=== PATIENT | male | born 1975 | race Two or more races ===

== ENCOUNTER 2023-02-27 18:37 | Emergency (ER) | payer OTHER, SELFPAY ==
[2023-02-27 18:42] VITALS: BP 153/89; PULSE 95; RESP 16; TEMP 36.8; O2SAT 96; BMI 33.5
--- NOTE | 2023-02-27 18:50 | XR_ITS ---
The [address] [address] Patient Name: FABIO CHRISTIANSON MRN: [id number] date: 1975 Sex: M Assigned Patient Location: ER Current Patient Location: ER Accession/Order Number: [id number] Exam Date: 02/27/2023 18:55 Report Date: 02/27/2023 19:36 At the request of: JOBY CARO Procedure: XR lumbar spine 2-3V EXAMINATION: XR lumbar spine 2-3V, [id number] HISTORY: pain COMPARISON: CT abdomen/pelvis 09/25/2022 FINDINGS: There are 6 nonrib-bearing lumbar-type vertebral bodies with partial sacralization of the L6 vertebral body. No acute fracture or suspicious osseous lesion. Spinal alignment is within normal limits. No evidence of dynamic instability on flexion or extension views. Severe spondylosis at L5-L6, similar. Lesser degenerative changes throughout the remainder of the lumbar spine. Soft tissues are within normal limits. XR/XR lumbar spine 2-3V IMPRESSION: No acute osseous abnormality of the lumbar spine. Electronically authenticated by: BILL CUENCA Date: 02/27/2023 19:36
--- NOTE | 2023-02-27 18:52 | PC.NURSE ---
Addendum entered by Dalia Martinez RN 02/27/23 18:56: phone number is [phone] not the number below Original Note: pt from [facility] for back pain. hx of L1-L2 herniated disc. pt reports he was getting pants on and has had exacerbation since. pt reports this happened yesterday. started on prednisone 40mg by facility and ibuprofen which pt reports is not helping. number to call [facility] for transport back to facility is [phone]
--- NOTE | 2023-02-27 18:53 | ED.BACK1 ---
HPI - Back Pain/Injury General Chief Complaint: Back Pain/Injury Stated Complaint: BACK PAIN Time Seen by Provider: 02/27/23 18:50 Source: patient Mode of arrival: Wheelchair Limitations: no limitations History of Present Illness HPI Narrative: 47 year old male presents to the ED for low back pain. Onset was yesterday evening. He has hx chronic low back pain. Denies recent injury. Denies fever, chills, urinary sx, weakness. Denies saddle anesthesia. Denies change in bowel and/or bladder control. Denies N/T to his extremities. He took Motrin at 0830 this morning. He was started on prednisone today. He is residing at [facility] for alcohol detox; he has been there since 02/11/23. MD elicited complaint: Reports back pain Pertinent past history: Reports prior back pain; Denies recent trauma, neurological deficit or incontinence Location: Reports lumbar spine; Denies thoracic spine, left flank or right flank Related Data Home Medications Medication Instructions Recorded Confirmed gabapentin 300 mg capsule 300 mg PO DAILY 02/27/23 02/27/23 hydroxyzine pamoate 25 mg capsule 25 mg PO DAILY 02/27/23 02/27/23 prednisone 10 mg tablet 40 mg PO DAILY 02/27/23 02/27/23 sertraline 50 mg tablet 100 mg PO DAILY 02/27/23 02/27/23 Previous Rx's Medication Instructions Recorded tizanidine 2 mg capsule (Zanaflex) 2 mg PO Q8H PRN back pain, muscle 02/27/23 spasms #12 caps Allergies Allergy/AdvReac Type Severity Reaction Status Date / Time No Known Drug Allergies Allergy Verified 02/27/23 18:47 Review of Systems ROS Constitutional Denies: fever or chills Ears, nose, mouth, and throat Denies: neck pain Cardiovascular Denies: chest pain Respiratory Denies: shortness of breath Gastrointestinal Denies: abdominal pain, nausea, vomiting or diarrhea Genitourinary Denies: painful urination, urinary frequency, urinary urgency, difficulty urinating or urinary hesitancy Musculoskeletal Reports: back pain; Denies: neck pain, extremity pain or extremity swelling Integumentary/Breast Denies: rash PFSH PFSH Social History Smoking status: Former smoker Exam Constitutional Vital Signs, click to edit/add: Last Vital Signs Temp 98.3 F 02/27/23 18:42 Pulse 95 H 02/27/23 18:42 Resp 16 02/27/23 18:42 BP 153/89 H 02/27/23 18:42 Pulse Ox 96 02/27/23 18:42 O2 Del Method Room Air 02/27/23 18:42 Common normals: no apparent distress and oriented x3 General appearance: cooperative Eye Common normals: conjunctivae normal and no scleral icterus Neck & C-Spine Common normals: supple Chest Chest: symmetrical chest wall rise Respiratory Common normals: normal respiratory effort Effort & inspection: able to speak in complete sentences and symmetric chest movement Cardio Peripheral pulses: radial pulses present Back & Pelvis Thoracic spine/upper back: normal to inspection Lumbar spine/lower back: normal to inspection, pain with ROM, lumbar spinal tenderness, paraspinal muscle tenderness, paraspinal muscle spasm and straight leg raise negative bilaterally Neuro Common normals: oriented x3 Sensorium/orientation: awake and alert Speech: speech normal Motor exam: no pronator drift Course Vital Signs Vital signs: Vital Signs Temperature 98.3 F 02/27/23 18:42 Pulse Rate 95 H 02/27/23 18:42 Respiratory Rate 16 02/27/23 18:42 Blood Pressure 153/89 H 02/27/23 18:42 Pulse Oximetry 96 02/27/23 18:42 Oxygen Delivery Method Room Air 02/27/23 18:42 Temperature 98.3 F 02/27/23 18:42 Pulse Rate 95 H 02/27/23 18:42 Respiratory Rate 16 02/27/23 18:42 Blood Pressure 153/89 H 02/27/23 18:42 Pulse Oximetry 96 02/27/23 18:42 Oxygen Delivery Method Room Air 02/27/23 18:42 MDM - Back Pain/Injury MDM Narrative Medical decision making narrative: The patient was given Toradol and Norflex with some improvement in his discomfort. X-ray showed no acute osseous abnormality of the lumbar spine; severe spondylosis at L5-L6, similar. Findings were discussed with the patient. He was given a copy of his imaging report. He is taking a prednisone taper which was started today. A prescription was provided for Zanaflex. Follow up with pcp for a recheck, further evaluation and treatment. Return precautions were discussed. He will be discharged back to [facility]. Differential Diagnosis Differential diagnosis: Likely lumbar radiculopathy and strain of lumbar region Medical Records Attestation: I reviewed the patient's medical records. Imaging Data Lumbar spine x-ray: Attestation: I have reviewed the pertinent imaging results. Radiologist's impression: Procedure: XR lumbar spine 2-3V EXAMINATION: XR lumbar spine 2-3V, [id number] HISTORY: pain COMPARISON: CT abdomen/pelvis 09/25/2022 FINDINGS: There are 6 nonrib-bearing lumbar-type vertebral bodies with partial sacralization of the L6 vertebral body. No acute fracture or suspicious osseous lesion. Spinal alignment is within normal limits. No evidence of dynamic instability on flexion or extension views. Severe spondylosis at L5-L6, similar. Lesser degenerative changes throughout the remainder of the lumbar spine. Soft tissues are within normal limits. XR/XR lumbar spine 2-3V IMPRESSION: No acute osseous abnormality of the lumbar spine. Electronically authenticated by: BILL CUENCA Date: 02/27/2023 19:36 Discharge Plan Discharge Chief Complaint: Back Pain/Injury Clinical Impression: Acute exacerbation of chronic low back pain Patient Disposition: Home, Self-Care Time of Disposition Decision: 20:02 Condition: Good Mode of Transportation: Private Vehicle Prescriptions / Home Meds: New tizanidine [Zanaflex] 2 mg capsule 2 mg PO Q8H PRN (Reason: back pain, muscle spasms) Qty: 12 0RF No Action gabapentin 300 mg capsule 300 mg PO DAILY Rx Instructions: at HS hydroxyzine pamoate 25 mg capsule 25 mg PO DAILY Rx Instructions: and 50 mg at HS sertraline 50 mg tablet 100 mg PO DAILY prednisone 10 mg tablet 40 mg PO DAILY Rx Instructions: Taper pack for 12 days. Instructions: Back Pain (ED) Additional Instructions: Follow up with your primary care provider within the next few days for a recheck, further evaluation and treatment. Return to the ER if your condition worsens. Stand Alone Forms: Portal Instructions Referrals: Physician,Non-Staff, MD [Primary Care Provider] - As soon as possible Discharge Date/Time: 02/27/23 20:43
[2023-02-27] MEDS: KETOROLAC TROMETHAMINE 60 MG/2 ML VIAL IM (19:09)
[2023-02-27] MEDS: ORPHENADRINE 60 MG/ 2 ML VIAL IM (19:10)
== END 2023-02-27 20:43 | disposition home or self-care (01) ==
PROVIDERS: Emergency Provider Emergency Medicine
DX: M54.50 Low back pain, unspecified (principal); G89.29 Other chronic pain; Z79.899 Other long term (current) drug therapy; Z87.891 Personal history of nicotine dependence
CPT/HCPCS: 72100; 96372; 99284